=== PATIENT | female | born 2005 ===

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

== ENCOUNTER 2024-03-05 16:56 | Emergency (ER) | payer SELFPAY ==
[~2024-03-05] VITALS: Ht 162.6 cm; Wt 68.2 kg
[~2024-03-05 16:56] MED LIST changes: +BACTRIM DS1 TAB PO; +DIFLUCAN100 M1 PO; +OMNI-PAC300 MG PO
[2024-03-05 17:11] VITALS: BP 127/84
[2024-03-05] MEDS ORDERED: BACTRIM DS1 TAB PO (17:58)
== END 2024-03-05 18:11 | disposition home or self-care (01) | DRG 603 ==
LOC: ED 16:56
DX: L02.212 Cutaneous abscess of back [any part, except buttock and flank] (principal)